=== PATIENT | male | born 1940 | race Caucasian/White ===

== ENCOUNTER → 2021-09-14 | Outpatient (CLI) | payer MEDICARE ==
--- NOTE | 2021-09-14 08:31 | Diagnostic Imaging Report ---
INDICATION: Cough and upper respiratory infection. TIME OF EXAM: 8:09 AM No prior studies available for comparison. Heart size normal. There are some infiltrates in the left mid to upper lung field as well as left lung base suggestive of pneumonia. There may be some minimal infiltrate in the right mid and lower lung field as well. There is no effusion. There is no pneumothorax. IMPRESSION: Bilateral infiltrates suggestive of pneumonia. Dictated by: Dictated on workstation # [id number]
== END ==
LOC: RAD FS 07:56
PROVIDERS: ATTEND Nurse Practitioner Family
DX: J06.9 Acute upper respiratory infection, unspecified (principal); R91.8 Other nonspecific abnormal finding of lung field
CPT/HCPCS: 71046

== ENCOUNTER 2021-09-15 14:30 | Emergency (ER) | payer MEDICARE ==
[~2021-09-15] VITALS: Ht 177.8 cm; Wt 91.9 kg
--- NOTE | 2021-09-15 14:46 | ED General ---
General Chief Complaint: General Problems/Pain Stated Complaint: ELEV D-DIMER History of Present Illness Date Seen by Provider: Sep 15, 2021 Time Seen by Provider: 14:44 Initial Comments 80-year-old male sent in by primary care provider because they were concerned about a blood clot. Patient has not felt well for about 3 weeks. He is having some shortness of breath and shortness of breath with exertion. Patient was seen yesterday and had elevated D-dimer and sent him in for CT scan. Allergies and Home Medications Allergies Coded Allergies: No Allergy Information Available (Unverified , 09/15/21) Patient Home Medication List Home Medication List Reviewed: Yes Review of Systems Review of Systems Constitutional: see HPI Respiratory: dyspnea on exertion Cardiovascular: No chest pain, No palpitations Gastrointestinal: no symptoms reported Genitourinary: no symptoms reported Musculoskeletal: no symptoms reported Skin: no symptoms reported Psychiatric/Neurological: No Symptoms Reported Past Ogekqlz-Iuared-[id number] Hx Patient Social History Tobacco Use?: No Smoking Status: Never a Smoker Smokeless Tobacco Frequency: Never a User Use of E-Cig and/or Vaping dev: No Use of E-Cig and/or Vaping [place]: Never a User Substance use?: No Alcohol Use?: No Pt feels they are or have been: No Physical Exam Vital Signs Vital Signs - First Documented 09/15/21 14:37 Temp 36.7 Pulse 106 Resp 17 B/P (MAP) 115/73 (87) O2 Delivery Room Air Capillary Refill : Height, Weight, BMI Height: '" Weight: lbs. oz. kg; BMI Method: General Appearance: No Apparent Distress, WD/WN Respiratory: Lungs Clear, Normal Breath Sounds Cardiovascular: Regular Rate, Rhythm, No Edema Extremity: Normal Capillary Refill, Normal Inspection Neurologic/Psychiatric: Alert, Oriented x3, Normal Mood/Affect, pacs specialist II-XII Norm as Tested Skin: Normal Color, Warm/Dry Progress/Results/Core Measures Suspected Sepsis SIRS Temperature: Pulse: Respiratory Rate: Blood Pressure / Mean: Results/Orders My Orders Orders - RADHA REYNOLDS DO Ct Angio Chest W (09/15/21 14:46) Iohexol Injection (Omnipaque 350 Mg/Ml 1 (09/15/21 15:15) Received Contrast (Hold Metformin- Contr (09/15/21 15:15) Sodium Chloride Flush (Catheter Flush Sy (09/15/21 15:15) Ns (Ivpb) (Sodium Chloride 0.9% Ivpb Bag (09/15/21 15:15) Medications Given in ED Current Medications Medications Dose Ordered Sig/Jaqueline Route Start Time Stop Time Status Last Admin Dose Admin Iohexol 150 ml ONCE ONCE IV 09/15/21 15:15 09/15/21 15:16 DC 09/15/21 15:23 100 ML Sodium Chloride 10 ml NEEDED PRN IV 09/15/21 15:15 09/15/21 15:23 10 ML Sodium Chloride 100 ml ONCE ONCE IV 09/15/21 15:15 09/15/21 15:16 DC 09/15/21 15:23 80 ML Vital Signs/I&O 09/15/21 09/15/21 14:37 14:37 Temp 36.7 Pulse 106 Resp 17 B/P (MAP) 115/73 (87) O2 Delivery Room Air Room Air Capillary Refill : Progress Note : Progress Note Patient reports that he actually feels fairly well. Patient CT was consistent with likely Covid pneumonia. Patient suspected that he had Covid around a week or 2 ago. Patient stable. He will be discharged home and should follow with a primary care provider as needed Diagnostic Imaging Diagonstic Imaging: CT Plain Films/CT/US/NM/MRI: chest Comments CT ANGIO CHEST W EXAMINATION: CT angiography of the chest. TECHNIQUE: Contrast enhanced thin section helical images were obtained through the chest with intravenous contrast timed for the optimal opacification of the arterial structures per CTA protocol. Post-processing, reconstructions and interpretation of angiographic images of the vessels was performed. 3D MIP reconstructions were performed and reviewed. All CT scans use one or more of the following dose optimizing techniques: automated exposure control, MA and/or KvP adjustment based on a patient size and exam type, or iterative reconstruction. HISTORY: Elevated d dimer, dyspnea. COMPARISON: None available. FINDINGS: Vascular: No filling defects within the pulmonary arteries. Thoracic aorta is normal in caliber. Thyroid: The thyroid is normal. Mediastinum: Heart size is normal without significant pericardial effusion. No suspicious lymphadenopathy. Lungs and airways: There are patchy groundglass opacities seen throughout both lungs. No pleural effusion or pneumothorax. The airways are normal. Upper abdomen: The subphrenic structures are normal. Musculoskeletal: Degenerative changes of the spine without suspicious osseous lesion or compression fracture. IMPRESSION: 1. No findings of pulmonary embolus. 2. Patchy groundglass opacities seen within the lungs which can be seen with multifocal or atypical pneumonia such as Covid 19. Departure Impression Primary Impression: Pneumonia due to COVID-19 virus Disposition: HOME, SELF-CARE Condition: Stable Departure-Patient Inst. Referrals: THOMAS SEPULVEDA MD (PCP) Primary Care Physician Patient Instructions: COVID-19 (DC) Add. Discharge Instructions: Follow-up with your primary care provider as needed for worsening symptoms All discharge instructions reviewed with patient and/or family. Voiced underst anding. RADHA REYNOLDS DO Sep 15, 2021 14:46
[2021-09-15] MEDS ORDERED: IOHEXOL 350 MG/ML 150 ML (OMNIPAQUE 350) VIAL IV ONE (15:15)
[2021-09-15] MEDS ORDERED: CATHETER FLUSH 10 ML SYR IV PRN (15:15)
[2021-09-15] MEDS ORDERED: HOLD METFORMIN - RECEIVED CONTRAST 20 ML VIAL IV SCH (15:15)
[2021-09-15] MEDS ORDERED: NS 100 ML (IVPB) BAG IV ONE (15:15)
--- NOTE | 2021-09-15 15:33 | Diagnostic Imaging Report ---
EXAMINATION: CT angiography of the chest. TECHNIQUE: Contrast enhanced thin section helical images were obtained through the chest with intravenous contrast timed for the optimal opacification of the arterial structures per CTA protocol. Post-processing, reconstructions and interpretation of angiographic images of the vessels was performed. 3D MIP reconstructions were performed and reviewed. All CT scans use one or more of the following dose optimizing techniques: automated exposure control, MA and/or KvP adjustment based on a patient size and exam type, or iterative reconstruction. HISTORY: Elevated d dimer, dyspnea. COMPARISON: None available. FINDINGS: Vascular: No filling defects within the pulmonary arteries. Thoracic aorta is normal in caliber. Thyroid: The thyroid is normal. Mediastinum: Heart size is normal without significant pericardial effusion. No suspicious lymphadenopathy. Lungs and airways: There are patchy groundglass opacities seen throughout both lungs. No pleural effusion or pneumothorax. The airways are normal. Upper abdomen: The subphrenic structures are normal. Musculoskeletal: Degenerative changes of the spine without suspicious osseous lesion or compression fracture. IMPRESSION: 1. No findings of pulmonary embolus. 2. Patchy groundglass opacities seen within the lungs which can be seen with multifocal or atypical pneumonia such as Covid 19. 3. The report was faxed to Infection Control by leno@3:32 PM. Dictated by: Dictated on workstation # [id number]
[2021-09-15 15:55] VITALS: BP 121/71
== END 2021-09-15 15:55 | disposition home or self-care (01) ==
LOC: EDUNIT# 14:30 → ER FS 14:32
DX: U07.1 COVID-19 (principal); J12.82 Pneumonia due to coronavirus disease 2019
CPT/HCPCS: 71275